=== PATIENT | male | born 1940 | race Caucasian/White ===

== ENCOUNTER → 2016-05-04 | Outpatient (CLI) | payer OTHER | END | disposition home or self-care (01) | LOC: PCVCIMAG 09:56 | PROVIDERS: ATTEND Nuclear Medicine Nuclear Cardiology | DX: I87.1 Compression of vein (principal); I82.409 Acute embolism and thrombosis of unspecified deep veins of unspecified lower extremity; I87.2 Venous insufficiency (chronic) (peripheral); I10 Essential (primary) hypertension; M79.89 Other specified soft tissue disorders | CPT/HCPCS: 93976; G0463 ==